=== PATIENT | male | born 1950 | race Hispanic/Latino ===

== ENCOUNTER → 2024-11-16 | Outpatient (CLI) | payer OTHER ==
[~2024-11-16] MED LIST: IOHEXOL 350 MG/ML 100ML INFUS..BTL IV ONE
--- NOTE | 2024-11-16 13:20 | HMCIMG ---
Exam Type: CT ANGIO ABDOMEN PELVIS Clinical Information: Aneurysm of the ascending aorta, AAA PROTOCOL; without rupture, Comparison: None CT Dose Index (CTDI): 10.20 mGy Dose Length Product (DLP): 530.00 total mGy-cm PROTOCOL: Routine noncontrast helical scanning of the abdomen and pelvis was performed at 5mm collimation. Findings: Bilateral nonobstructing nephrolithiasis, largest calculus left renal midpole mid collecting system, 12 x 18 mm. The lung bases are clear. The stomach is unremarkable. It shows no wall thickening. No gross ulceration is seen. It is not overly distended. There are no surrounding inflammatory changes. No wall lesions are identified to suggest cancer. The spleen is unremarkable. It is not enlarged. The pancreas shows normal anatomy. It is not fatty replaced. It shows no lesions. The pancreatic duct is not dilated. The gallbladder is unremarkable. It shows no cholelithiasis. The gallbladder wall is normal in thickness. There is no pericholecystic fluid. The is no acute or chronic inflammation noted. The adrenal glands are unremarkable. There is no enlargement. No lesions are noted. The liver is unremarkable. It shows no focal masses. The appendix is unremarkable. It shows no evidence of inflammation. No appendicolith is seen. Left upper quadrant patent colostomy. Rest of small and large bowel are unremarkable. The urinary bladder is unremarkable. There is no wall thickening to suggest tumor or inflammation. There are no intraluminal calculi. There are no diverticula. There is no evidence of chronic bladder outlet obstruction. There is no evidence of urinary bladder distention to suggest urinary retention. The prostate is enlarged. There is atheromatous plaque of the aorta. No aneurysm seen. No dissection. IMPRESSION: There is atheromatous plaque of the aorta. No aneurysm seen. No dissection. Chronic changes as noted. No acute pathology. This study was performed using dose reduction techniques to include automated exposure control and/or adjustment of the mA and/or kV according to patient size.
== END | disposition home or self-care (01) ==
LOC: RAH 11:08
PROVIDERS: ATTEND Internal Medicine Cardiovascular Disease
DX: N40.0 Benign prostatic hyperplasia without lower urinary tract symptoms (principal); I71.21 Aneurysm of the ascending aorta, without rupture; N20.0 Calculus of kidney; I70.0 Atherosclerosis of aorta; Z93.3 Colostomy status
CPT/HCPCS: 74174; Q9967